=== PATIENT | female | born 1975 ===

== ENCOUNTER 2023-07-26 12:11 | Emergency (ER) | payer BC ==
[~2023-07-26] VITALS: Ht 162.6 cm; Wt 70.5 kg
[2023-07-26] MEDS ORDERED: ketorolac trometh. 30mg/ml inj. IM STA (13:32)
[2023-07-26] MEDS ORDERED: HYDROcodone/acetaminophen 10/325mg tab PO ONE (13:35)
[2023-07-26 13:56] VITALS: BP 154/80; PULSE 77; RESP 16; TEMP 98.4; O2SAT 98
--- NOTE | 2023-07-26 18:32 | NUR ---
I AGREE WITH THE ASSESSMENT PER JOHN SMITH LVN.
== END 2023-07-26 13:58 | disposition home or self-care (01) ==
LOC: ER 12:12
DX: M25.562 Pain in left knee (principal); Z91.041 Radiographic dye allergy status
CPT/HCPCS: 29505; 73564; 96372; 99284; J1885